=== PATIENT | female | born 2005 | race Two or more races ===

== ENCOUNTER 2024-10-08 19:22 | Emergency (ER) | payer OTHER ==
[~2024-10-08] VITALS: Ht 175.3 cm; Wt 104.3 kg
[2024-10-08] MEDS ORDERED: CEFTRIAXONE SODIUM 1,000 MG VIAL IM STA (22:36)
[2024-10-08] MEDS ORDERED: KETOROLAC TROMETHAMINE 30 MG VIAL IM STA (22:36)
[2024-10-08] MEDS ORDERED: CEFTRIAXONE SODIUM 1,000 MG VIAL ONE (22:40)
[2024-10-08] MEDS ORDERED: KETOROLAC TROMETHAMINE 60 MG VIAL IM ONE (22:40)
== END 2024-10-08 22:44 | disposition home or self-care (01) ==
LOC: ER 19:25
DX: J06.9 Acute upper respiratory infection, unspecified (principal); Z20.822 Contact with and (suspected) exposure to COVID-19